=== PATIENT | male | born 1970 | race Caucasian/White ===

== ENCOUNTER 2025-05-26 16:06 | Emergency (ER) | payer SELFPAY ==
[2025-05-26 16:13] VITALS: BP 148/76; PULSE 68; RESP 20; TEMP 98; BMI 31.8
[2025-05-26 17:35] LABS: ABSOLUTE IMMATURE GRANULOCYTES 0.03 x10^3/uL (0.0-0.031); BASOPHILS # 0.04 x10^3/uL (0.01-0.08); EOSINOPHIL % 2.2 % (0.8-7.0); EOSINOPHILS # 0.27 x10^3/uL (0.04-0.54); MCHC 32.6 g/dl (32.3-36.5); MEAN CELL VOLUME 85.8 fl (79.0-92.2); MEAN PLT VOLUME 10.6 fl (9.4-12.4); MONOCYTE # 0.70 x10^3/uL (0.30-0.82); MONOCYTE % 5.6 % (5.3-12.2); RDW 14.8 % (12.2-16.1)
[2025-05-26 17:56] LABS: GLUCOSE,RANDOM 81.0 mg/dL (74-106)
[2025-05-26 17:57] LABS: CO2 24.0 mmol/L (21-32)
[2025-05-26] MEDS ORDERED: AMPICILLIN NA/SULBACTAM NA 1.5 GM VIAL ONE (18:15)
[2025-05-26] MEDS ORDERED: ACETAMINOPHEN INJECTION 100 ML ONE (18:21)
[2025-05-26 18:23] LABS: HCV DIAGNOSTIC IN-HOUSE W/RFLX NON-REACTIVE (NONREACTIVE); HIV INTERPRETATION NEGATIVE (NEGATIVE)
[2025-05-26 18:42] LABS: CREATININE 1.06 mg/dL (0.55-1.3)
[2025-05-26] MEDS: AMPICILLIN NA/SULBACTAM NA 3 GM in SODIUM CHLORIDE 100 ML IVPB ONE (19:10)
[2025-05-26] MEDS: SODIUM CHLORIDE 0.9% 500 ML INFUS.BAG IV ONE (19:10)
[2025-05-26] MEDS: ACETAMINOPHEN 1000 MG/100 ML BAG IVPB ONE (19:10)
[2025-05-26] MEDS ORDERED: DIPHTH,PERTUSS(ACELL),TET 0.5 ML DISP.SYRIN IM ONE (19:55)
[2025-05-26] MEDS: DIPHTH,PERTUSS(ACELL),TET 0.5 ML DISP.SYRIN IM ONE (20:11)
== END 2025-05-26 20:16 | disposition home or self-care (01) ==
LOC: JER 16:06 → JERFT 16:06
PROC: 3E03329 Introduction of Other Anti-infective into Peripheral Vein, Percutaneous Approach (ICD-10-PCS; principal; 2025-05-26)
PROC: 3E033NZ Introduction of Analgesics, Hypnotics, Sedatives into Peripheral Vein, Percutaneous Approach (ICD-10-PCS; 2025-05-26)
PROC: 3E0234Z Introduction of Serum, Toxoid and Vaccine into Muscle, Percutaneous Approach (ICD-10-PCS; 2025-05-26)
DX: S41.132A Puncture wound without foreign body of left upper arm, initial encounter (principal); Z23 Encounter for immunization; W54.0XXA Bitten by dog, initial encounter
CPT/HCPCS: 36415; 80048; 85025; 86803; 87389; 90715; 99284-25